=== PATIENT | male | born 1980 | race Caucasian/White ===

== ENCOUNTER 2018-10-15 08:08 | Emergency (ER) | payer OTHER ==
[~2018-10-15] VITALS: Ht 190.5 cm; Wt 104.3 kg
[~2018-10-15 08:08] MED LIST: CYCL10 PO; DULO30 PO; Flexeril5 MG; HYDACE5 PO; HYDR1TAB94 PO; IBUP600 PO; IBUP800 PO; MELO7.5 PO; OXYACE5T PO; Omeprazole20 M1 PO; PREG75 PO; Percocet 5-3251 EACH PO; TRAM50 PO
[2018-10-15] MEDS ORDERED: DEPRESSION MED (08:23)
[2018-10-15] MEDS ORDERED: RANI150EL (08:23)
[2018-10-15] MEDS ORDERED: CYCL10 (08:23)
[2018-10-15] MEDS ORDERED: NAPR500 (08:23)
[2018-10-15] MEDS ORDERED: Ultram50 MG PO (09:51)
== END 2018-10-15 09:58 | disposition home or self-care (01) ==
LOC: ER 08:08
DX: M54.5 Low back pain (principal); M54.6 Pain in thoracic spine; F17.200 Nicotine dependence, unspecified, uncomplicated; Z79.899 Other long term (current) drug therapy
CPT/HCPCS: 99283; J1100

== ENCOUNTER 2020-11-23 19:22 | Emergency (ER) | payer OTHER ==
[~2020-11-23] VITALS: Ht 190.5 cm; Wt 97.5 kg
[~2020-11-23 19:22] MED LIST changes: +CYCL10; +DEPRESSION MED; +NAPR500; +RANI150EL; +Ultram50 MG PO
[2020-11-23 21:44] LABS: Influenza A, PCR NEGATIVE (NEGATIVE); Influenza B, PCR NEGATIVE (NEGATIVE); Resp Syncytial Virus, PCR NEGATIVE (NEGATIVE)
[2020-11-23 21:48] LABS: SARS-Cov-2 (COVID-19) PCR, MMC POSITIVE (NEGATIVE)
[2020-11-23] MEDS ORDERED: OMEP20ER PO (21:51)
== END 2020-11-23 23:05 | disposition home or self-care (01) ==
LOC: ER 19:22
PROVIDERS: Physician Assistant
DX: U07.1 COVID-19 (principal); Z79.899 Other long term (current) drug therapy
CPT/HCPCS: 0241U; 71045; 99285-25; A9270

== ENCOUNTER → 2021-10-09 | Outpatient (CLI) | payer OTHER ==
[~2021-10-09] MED LIST changes: +OMEP20ER PO
[2021-10-11 17:10] LABS: ANA DIRECT Positive (Negative); ANTI-DNA (DS) AB QN <1 IU/mL (0-9); RNP ANTIBODIES <0.2 AI (0.0-0.9); SJOGREN'S ANTI-SS-A <0.2 AI (0.0-0.9); SJOGREN'S ANTI-SS-B <0.2 AI (0.0-0.9); SMITH ANTIBODIES <0.2 AI (0.0-0.9)
== END | disposition home or self-care (01) ==
LOC: LAB SHORT 16:20 → LAB 16:20
PROVIDERS: Family Medicine
DX: R20.0 Anesthesia of skin (principal)
CPT/HCPCS: 86140; 86430

== ENCOUNTER → 2023-06-01 | Outpatient (CLI) | payer OTHER ==
[2023-06-01 19:53] LABS: BASOPHILS ABSOLUTE AUTO 0.06 K/mm3 (0.00-0.23); BASOPHILS PERCENT AUTO 1 % (0-2); EOSINOPHILS ABSOLUTE AUTO 0.18 K/mm3 (0.00-0.68); EOSINOPHILS PERCENT AUTO 2 % (0-6); Hemoglobin 17.1 g/dL (13.5-17.5); IMMATURE GRAN ABSOLUTE AUTO 0.02 K/mm3 (0.00-0.10); IMMATURE GRAN PERCENT AUTO 0 % (0-1); LYMPHOCYTES ABSOLUTE AUTO 2.15 K/mm3 (0.84-5.20); LYMPHOCYTES PERCENT AUTO 27 % (21-46); MONOCYTES ABSOLUTE AUTO 0.54 K/mm3 (0.16-1.47); MONOCYTES PERCENT AUTO 7 % (4-13); Mean Corpuscular HGB 29.9 pg (26.0-34.0); Mean Corpuscular HGB Conc 34.2 g/dL (31.5-36.5); Mean Corpuscular Volume 88 fL (80-100); Mean Platelet Volume 11.2 fL (9.1-12.4); NEUTROPHILS ABSOLUTE AUTO 5.12 K/mm3 (1.96-9.15); NEUTROPHILS PERCENT AUTO 64 % (41-73); Platelet Count 266 K/mm3 (150-400); RDW Coefficient Variation 12.4 % (11.7-14.2); RDW Standard Deviation 40.1 fL (35.1-46.3); Red Blood Cell Count 5.71 M/mm3 (4.30-5.90); White Blood Cell Count 8.07 K/mm3 (4.00-11.30)
[2023-06-01 20:23] LABS: Alanine Aminotransfer (ALT/SGP 51 U/L (12-78); Albumin, Blood 4.6 g/dL (3.4-5.0); Albumin/Globulin Ratio 1.3 (0.8-1.8); Alk Phos 69 U/L (50-136); Anion Gap 7 mmol/L (6-16); Aspartate Aminotrans (AST/SGOT 20 U/L (12-37); Bilirubin, Total 1.7 mg/dL (0.1-1.0); Blood Urea Nitrogen 20 mg/dL (8-24); Bun/Creatinine Ratio 21.6 (12.0-20.0); CHOL/HDL RATIO 4.2; CO2, Blood 26 mmol/L (21-32); Calcium, Blood 9.1 mg/dL (8.5-10.1); Chloride, Blood 105 mmol/L (98-108); Cholesterol 127 mg/dL (50-200); Creatinine, Blood 0.93 mg/dL (0.60-1.20); Globulin, Blood 3.5 g/dL (2.2-4.0); Glomerular Filtration Rate 103 (60-); Glucose, Blood 91 mg/dL (70-99); HDL Cholesterol 30 mg/dL (>39); LDL/HDL RATIO 2.6; Low Density Lipoprotein Chol 77 mg/dL (0-110); Potassium, Blood 3.8 mmol/L (3.5-5.5); Sodium, Blood 138 mmol/L (136-145); Total Protein, Blood 8.1 g/dL (6.4-8.2); Triglycerides 100 mg/dL (30-160); Very Low Density Lipoprot Chol 20 mg/dL (6-32)
== END | disposition home or self-care (01) ==
LOC: LAB SHORT 18:12 → LAB 18:12
PROVIDERS: Student in an Organized Health Care Education/Training Program
DX: Z13.6 Encounter for screening for cardiovascular disorders (principal); F41.8 Other specified anxiety disorders; R53.83 Other fatigue
CPT/HCPCS: 80053; 80061; 82306; 84443; 85025

== ENCOUNTER 2024-02-16 05:14 | Inpatient (IN) | payer OTHER ==
[~2024-02-16] VITALS: Ht 190.5 cm; Wt 108.9 kg
[2024-02-16] MEDS ORDERED: BUPROPION XL150 M1 PO (05:54)
[2024-02-16] MEDS ORDERED: VITAMIN D350 MC3 PO (05:54)
[2024-02-16 06:03] LABS: BASOPHILS ABSOLUTE AUTO 0.08 K/mm3 (0.00-0.23); BASOPHILS PERCENT AUTO 1 % (0-2); EOSINOPHILS PERCENT AUTO 4 % (0-6); Hematocrit 49.5 % (37.0-53.0); Hemoglobin 16.9 g/dL (13.5-17.5); IMMATURE GRAN ABSOLUTE AUTO 0.03 K/mm3 (0.00-0.10); IMMATURE GRAN PERCENT AUTO 0 % (0-1); LYMPHOCYTES ABSOLUTE AUTO 2.31 K/mm3 (0.84-5.20); LYMPHOCYTES PERCENT AUTO 33 % (21-46); MONOCYTES ABSOLUTE AUTO 0.51 K/mm3 (0.16-1.47); MONOCYTES PERCENT AUTO 7 % (4-13); Mean Corpuscular HGB 30.2 pg (26.0-34.0); Mean Corpuscular HGB Conc 34.1 g/dL (31.5-36.5); Mean Corpuscular Volume 89 fL (80-100); Mean Platelet Volume 10.3 fL (9.1-12.4); NEUTROPHILS PERCENT AUTO 54 % (41-73); Platelet Count 271 K/mm3 (150-400); RDW Coefficient Variation 12.2 % (11.7-14.2); RDW Standard Deviation 40.1 fL (35.1-46.3); Red Blood Cell Count 5.59 M/mm3 (4.30-5.90); White Blood Cell Count 7.03 K/mm3 (4.00-11.30)
[2024-02-16] MEDS ORDERED: Morphine Sulfate 4 MG/1 ML Injection IV ONE (06:10)
[2024-02-16] MEDS ORDERED: Ondansetron HCl 2 MG / ML 2ML Vial IV ONE (06:10)
[2024-02-16 06:16] LABS: Albumin, Blood 4.2 g/dL (3.4-5.0); Albumin/Globulin Ratio 1.4 (0.8-1.8); Bun/Creatinine Ratio 11.2 (12.0-20.0); Calcium, Blood 9.1 mg/dL (8.5-10.1); Creatinine, Blood 1.07 mg/dL (0.60-1.20); Globulin, Blood 3.1 g/dL (2.2-4.0); Potassium, Blood 3.8 mmol/L (3.5-5.5); Total Protein, Blood 7.3 g/dL (6.4-8.2)
[2024-02-16] MEDS ORDERED: Lactated Ringer's 1,000 ML IV SCH ×2 (09:45→10:20)
[2024-02-16] MEDS ORDERED: Ondansetron HCl 2 MG / ML 2ML Vial IV PRN ×2 (09:45→10:20)
[2024-02-16] MEDS ORDERED: FentaNYL Citrate 50 MCG/ML 2 ML Injection IV PRN (09:45)
[2024-02-16] MEDS ORDERED: OxyCODONE HCL 5 MG TAB PO PRN (10:20)
[2024-02-16] MEDS ORDERED: HYDROmorphone HCl/Pf 1MG SYR IV PRN (10:20)
[2024-02-16] MEDS ORDERED: Acetaminophen 325 MG TABLET PO PRN (10:20)
[2024-02-16] MEDS ORDERED: Ketorolac Tromethamine 15mg Vial IV PRN (10:25)
[2024-02-16 11:06] VITALS: BP 155/116
--- NOTE | 2024-02-16 11:06 | NUR ---
PT ARRIVED TO THE ROOM AT APPROXIMATELY 1100. PT REPORTS PAIN IS MANAGED AT THIS TIME. PT ALERT ORIENTED AND INDEPENDENT. FAMILY PRESENT AT BEDSIDE FOR SUPPORT.
[2024-02-16 15:36] VITALS: BP 139/97
--- NOTE | 2024-02-16 17:15 | NUR ---
SHIFT SUMMARY PT IS TOLERATING CLEAR LIQUIDS WITHOUT INCREASED PAIN OR NAUSEA. HR HAS BEEN LOW 46-49, PT ASYMPTOMATIC, DR. FOSTER NOTIFIED, NO NEW ORDERS. PT USES CALL LIGHT APPROPRIATELY.
[2024-02-16 20:10] VITALS: BP 139/90
[2024-02-16 20:13] VITALS: BP 139/90
[2024-02-17] VITALS (16 sets, daily range): BP systolic 95–148; BP diastolic 63–114
--- NOTE | 2024-02-17 05:08 | NUR ---
SHIFT SUMMARY PT A/0X4 ON ASSESSMENT. PT DENIES PAIN, AND STATES "I FEEL FINE". PT EXPRESSES HOPEFULNESS TO HAVE GALLBLADDER REMOVED TOMORROW. PT INDEPENDENT IN ROOM. NO NEW COMPLAINTS, NO CHANGES TO PT CONDITION, PT RESTING IN BED AT A LOW POSITION WITH CALL LIGHT IN REACH. PT KEPT NPO FROM MIDNIGHT.
[2024-02-17 05:24] LABS: BASOPHILS ABSOLUTE AUTO 0.04 K/mm3 (0.00-0.23); BASOPHILS PERCENT AUTO 1 % (0-2); EOSINOPHILS ABSOLUTE AUTO 0.25 K/mm3 (0.00-0.68); EOSINOPHILS PERCENT AUTO 4 % (0-6); Hematocrit 46.2 % (37.0-53.0); Hemoglobin 15.8 g/dL (13.5-17.5); IMMATURE GRAN ABSOLUTE AUTO 0.02 K/mm3 (0.00-0.10); IMMATURE GRAN PERCENT AUTO 0 % (0-1); LYMPHOCYTES PERCENT AUTO 35 % (21-46); MONOCYTES ABSOLUTE AUTO 0.43 K/mm3 (0.16-1.47); MONOCYTES PERCENT AUTO 7 % (4-13); Mean Corpuscular HGB 30.3 pg (26.0-34.0); Mean Corpuscular HGB Conc 34.2 g/dL (31.5-36.5); Mean Corpuscular Volume 89 fL (80-100); Mean Platelet Volume 10.5 fL (9.1-12.4); NEUTROPHILS ABSOLUTE AUTO 3.05 K/mm3 (1.96-9.15); NEUTROPHILS PERCENT AUTO 53 % (41-73); Platelet Count 220 K/mm3 (150-400); RDW Coefficient Variation 12.4 % (11.7-14.2); RDW Standard Deviation 40.6 fL (35.1-46.3); Red Blood Cell Count 5.22 M/mm3 (4.30-5.90); White Blood Cell Count 5.79 K/mm3 (4.00-11.30)
[2024-02-17 05:55] LABS: Albumin, Blood 3.7 g/dL (3.4-5.0); Albumin/Globulin Ratio 1.3 (0.8-1.8); Bilirubin, Total 1.7 mg/dL (0.1-1.0); Bun/Creatinine Ratio 7.4 (12.0-20.0); Calcium, Blood 9.2 mg/dL (8.5-10.1); Creatinine, Blood 1.08 mg/dL (0.60-1.20); Globulin, Blood 2.8 g/dL (2.2-4.0); Magnesium, Blood 2.2 mg/dL (1.6-2.4); Potassium, Blood 4.2 mmol/L (3.5-5.5); Total Protein, Blood 6.5 g/dL (6.4-8.2)
[2024-02-17 07:48] LABS: Bilirubin, Direct 0.3 mg/dL (0.0-0.3); Bilirubin, Indirect 1.5 mg/dL (0.1-0.7); Bilirubin, Total 1.8 mg/dL (0.1-1.0)
--- NOTE | 2024-02-17 09:29 | NUR ---
Pt. is awake in bed and welcomes my visit. Pt. is pleasant. Spouse and daughter are at bedside. Facilitated a medical update and a life review. Listened with interest and empathy. Pt. displays evidence of being engaged, and motivated to do what he can to resume a healthy life. Prayed with Pt. Pt. and family verbalized gratitude for thspiritual care visit and welcomed this district extension service agent to return.
[2024-02-17] MEDS ORDERED: Indocyanine Green 25 MG Vial IV STA (09:59)
[2024-02-17] MEDS ORDERED: Sugammadex Sodium 200 MG/2ML SDV (100 MG/ML) ONE (10:16)
[2024-02-17] MEDS ORDERED: FentaNYL Citrate 50 MCG/ML 2 ML Injection ONE ×2 (10:16→12:40)
[2024-02-17] MEDS ORDERED: propofoL 20 ML IV ONE (10:16)
[2024-02-17] MEDS ORDERED: Bupivacaine 0.5% HCl 5 MG/ML 30MLVIAL ONE (10:17)
[2024-02-17] MEDS ORDERED: Dexamethasone Sod Phos 10 MG/ML 1ML VIAL ONE (10:18)
[2024-02-17] MEDS ORDERED: Ondansetron HCl 2 MG / ML 2ML Vial ONE (10:18)
[2024-02-17] MEDS ORDERED: Rocuronium Bromide 10 MG/ML 5ML Injection IV ONE (10:18)
[2024-02-17] MEDS ORDERED: Lactated Ringer's 1,000 ML IV SCH (10:35)
[2024-02-17] MEDS ORDERED: CefOXitin Sodium 2,000 MG in NS 50 ML IV SCH (10:45)
[2024-02-17] MEDS ORDERED: Dexmedetomidine HCL 200 MCG / 2 ML ONE (11:19)
[2024-02-17] MEDS ORDERED: HYDROmorphone HCl/Pf 1MG SYR ONE (12:40)
[2024-02-17] MEDS ORDERED: Ketorolac Tromethamine 30mg Vial ONE (12:42)
--- NOTE | 2024-02-17 13:10 | NUR ---
PACU TO ROOM 220 PT BROUGHT OUT TO THE FLOOR FROM PACU TO ROOM 220 WHERE HE HAD BEEN PRIOR TO SURGERY, MOVED TO HIS BED VIA SLIDER SHEET AND 4 STAFF MEMBERS. ABD HAS 4 LAPS VISUALIZED BY BOTH NUCLEAR TEST TECHNICIAN AND THIS RN, C/D/I AT THIS TIME. PT ALERT BUT SOMNOLENT, ABLE TO FOLLOW COMMANDS. POST OP VITALS STARTED.
--- NOTE | 2024-02-17 17:53 | NUR ---
DISCHARGE SUMMARY POD0 LAP ZACH, A/OX4, VSS, TOLERATING PO, DENIES PAIN, VOIDING INDEPENDENTLY. DISCUSSED DISCHARGE INSTRUCTIONS WITH HIM INCLUDING HOME CARE, MEDICATIONS, AND FOLLOW UP APPOINTMENTS. IV ACCESS REMOVED DURING DC INSTRUCTIONS. NO QUESTIONS AT THIS TIME, SCRIPTS SENT TO [facility] PER MD. PT ESCORTED OUT VIA WC TO PRIVATE AUTO TO GO HOME.
== END 2024-02-17 17:27 | disposition home or self-care (01) | DRG 419 ==
LOC: ER 05:14 → SURS 05:15
PROVIDERS: Emergency Medicine; Surgery; ADMIT Surgery
PROC: 8E0W4CZ Robotic Assisted Procedure of Trunk Region, Percutaneous Endoscopic Approach (ICD-10-PCS; 2024-02-17)
PROC: 0FT44ZZ Resection of Gallbladder, Percutaneous Endoscopic Approach (ICD-10-PCS; principal; 2024-02-17 10:00)
DX: K85.10 Biliary acute pancreatitis without necrosis or infection (principal); M54.9 Dorsalgia, unspecified; G89.29 Other chronic pain; Z90.89 Acquired absence of other organs; Z98.890 Other specified postprocedural states; Z79.899 Other long term (current) drug therapy; F32.A Depression, unspecified; F17.290 Nicotine dependence, other tobacco product, uncomplicated; K76.0 Fatty (change of) liver, not elsewhere classified
CPT/HCPCS: 36415; 71045; 74177; 76705; 80053; 82247; 82248; 83690; 83735; 84484; 85025; 88304; 93005; 93010; 94762; 96374-59; 96375; 99285-25; G0378; J0694; J1100; J1170; J1885; J2270; J2405; J2704; J3010; J7120; Q9967

== ENCOUNTER → 2024-03-23 | Outpatient (CLI) | payer OTHER ==
[~2024-03-23] MED LIST changes: +BUPROPION XL150 M1 PO; +VITAMIN D350 MC3 PO
[2024-03-23 09:21] LABS: BASOPHILS ABSOLUTE AUTO 0.05 K/mm3 (0.00-0.23); BASOPHILS PERCENT AUTO 1 % (0-2); EOSINOPHILS ABSOLUTE AUTO 0.14 K/mm3 (0.00-0.68); EOSINOPHILS PERCENT AUTO 2 % (0-6); Hematocrit 45.5 % (37.0-53.0); Hemoglobin 15.7 g/dL (13.5-17.5); IMMATURE GRAN ABSOLUTE AUTO 0.02 K/mm3 (0.00-0.10); IMMATURE GRAN PERCENT AUTO 0 % (0-1); LYMPHOCYTES ABSOLUTE AUTO 2.05 K/mm3 (0.84-5.20); LYMPHOCYTES PERCENT AUTO 35 % (21-46); MONOCYTES ABSOLUTE AUTO 0.46 K/mm3 (0.16-1.47); MONOCYTES PERCENT AUTO 8 % (4-13); Mean Corpuscular HGB 30.3 pg (26.0-34.0); Mean Corpuscular HGB Conc 34.5 g/dL (31.5-36.5); Mean Corpuscular Volume 88 fL (80-100); Mean Platelet Volume 10.5 fL (9.1-12.4); NEUTROPHILS ABSOLUTE AUTO 3.23 K/mm3 (1.96-9.15); NEUTROPHILS PERCENT AUTO 54 % (41-73); Platelet Count 223 K/mm3 (150-400); RDW Coefficient Variation 12.5 % (11.7-14.2); RDW Standard Deviation 40.5 fL (35.1-46.3); Red Blood Cell Count 5.18 M/mm3 (4.30-5.90); White Blood Cell Count 5.95 K/mm3 (4.00-11.30)
[2024-03-23 09:47] LABS: Albumin, Blood 4.1 g/dL (3.4-5.0); Albumin/Globulin Ratio 1.4 (0.8-1.8); Bilirubin, Total 1.8 mg/dL (0.1-1.0); Calcium, Blood 9.2 mg/dL (8.5-10.1); Creatinine, Blood 1.1 mg/dL (0.60-1.20); Globulin, Blood 2.9 g/dL (2.2-4.0); Potassium, Blood 3.9 mmol/L (3.5-5.5)
[2024-03-26 11:32] LABS: Bilirubin, Direct 0.2 mg/dL (0.0-0.3)
== END ==
LOC: LAB 09:17 → LAB SHORT 09:17
PROVIDERS: Chiropractor
DX: R10.13 Epigastric pain (principal)
CPT/HCPCS: 80053; 82248; 83690; 84484; 85025